=== PATIENT | female | born 1980 | race African-American/Black ===

== ENCOUNTER 2019-12-05 09:16 | Emergency (ER) | payer BC, OTHER ==
[~2019-12-05] VITALS: Ht 165.1 cm; Wt 89.8 kg
[2019-12-05 09:30] VITALS: BP 153/97
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
--- NOTE | 2019-12-05 09:42 | NUR ---
ED Nurse Note: Dr. De Leon on bedside.
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
[2019-12-05] MEDS ORDERED: IBUPROFEN600 MG ORAL (09:56)
[2019-12-05] MEDS ORDERED: ROBAXIN-500MG ORAL (09:56)
--- NOTE | 2019-12-05 10:00 | NUR ---
ED Nurse Note: Pt went on CT accompanied by tech.
--- NOTE | 2019-12-05 10:07 | NUR ---
ED Nurse Note: Pt returned from CT accompanied by tech.
[2019-12-05 10:08] LABS: HEMOGLOBIN 7.7 G/DL (12.0-16.0); MEAN CORPUSCULAR VOLUME 64 FL (80-99); PLATELET COUNT 309 K/UL (150-450); RED CELL DISTRIBUTION WIDTH 16.8 % (11.6-14.8); WHITE BLOOD COUNT 6.3 K/UL (4.8-10.8)
[2019-12-05] MEDS ORDERED: FERROUS SULFAT325 MG ORAL (10:17)
[2019-12-05 10:19] LABS: ANION GAP 10 mmol/L (5-15); BLOOD UREA NITROGEN 11 mg/dL (7-18); CALCIUM 8.8 MG/DL (8.5-10.1); CARBON DIOXIDE 25 MMOL/L (21-32); CHLORIDE 106 MMOL/L (98-107); CREATININE 0.8 MG/DL (0.55-1.30); POTASSIUM 3.3 MMOL/L (3.5-5.1); SODIUM 141 MMOL/L (136-145)
[2019-12-05 10:25] LABS: ALANINE AMINOTRANSFERASE 22 U/L (12-78); ALBUMIN 3.5 G/DL (3.4-5.0); ALBUMIN/GLOBULIN RATIO 0.8 (1.0-2.7); ALKALINE PHOSPHATASE 48 U/L (46-116); ASPARTATE AMINO TRANSFERASE 15 U/L (15-37); BILIRUBIN,TOTAL 0.2 MG/DL (0.2-1.0)
--- NOTE | 2019-12-05 10:33 | Diagnostic Imaging Report ---
Indication: Headache Technique: Contiguous 5 mm thick transaxial imaging of the head obtained in a Siemens Sensation [address] scanner. Soft tissue and bone windows generated. Automatic Exposure Control was utilized. Total Dose length Product (DLP): 1363.[address] Dose Index Volume (CTDIvol): 62.7 mGy Comparison: none Findings: The size and configuration of the cortical sulci, basal cisterns, and ventricles are within normal limits for age. There is no mass effect, midline shift, or edema identified. There is no evidence of acute hemorrhage or abnormal intra-axial or extra-axial fluid collections. The bones and soft tissues are unremarkable. There is some fluid and mucosal thickening within the visualized paranasal sinuses especially the right sphenoid sinus. Impression: No mass effect, edema or acute bleed. Sinusitis The CT scanner at [facility] is accredited by the [employer] and the scans are performed using dose optimization techniques as appropriate to a performed exam including Automatic Exposure control.
--- NOTE | 2019-12-05 10:34 | NUR ---
ED Nurse Note: US on bedside.
[2019-12-05 10:41] LABS: APPEARANCE,URINE CLEAR; BILIRUBIN, URINE NEGATIVE (NEGATIVE); COLOR,URINE PALE YELLOW; GLUCOSE, URINE (UA) NEGATIVE (NEGATIVE); KETONES,URINE 3+ (NEGATIVE); LEUKOCYTE ESTERASE ,URINE NEGATIVE (NEGATIVE); NITRITE,URINE NEGATIVE (NEGATIVE); PH,URINE 5 (4.5-8.0); PROTEIN,URINE NEGATIVE (NEGATIVE); UROBILINOGEN,URINE NORMAL MG/DL (0.0-1.0)
[2019-12-05 11:37] VITALS: BP 121/96
--- NOTE | 2019-12-05 11:37 | NUR ---
ER DISCHARGE NOTE: Pt is cleared to be discharged per ERMD, pt is aox4, on room air, with stable vital signs. pt was given dc and prescription instructions, pt was able to verbalize understanding, pt id band and iv site removed without complications. pt is able to ambulate with steady gait. pt took all belongings.
--- NOTE | 2019-12-05 11:58 | Diagnostic Imaging Report ---
Indication: Back pain Comparison: None Findings: 2 views of the thoracic spine were obtained. Normal alignment is demonstrated. Vertebral body heights and intervertebral disc heights are normal. The posterior elements including the facets are unremarkable. Soft tissues are unremarkable. Impression: No acute injury appreciated.
--- NOTE | 2019-12-05 12:06 | Diagnostic Imaging Report ---
Indication: Abdominal pain Technique: Grayscale and duplex Doppler imaging of the abdomen performed. Comparison: None Findings: The liver is unremarkable. Doppler interrogation of the main portal vein shows patency with hepatopedal, monophasic flow. There is no biliary ductal dilatation identified. Gallbladder is unremarkable. There is a tiny cyst within the spleen measuring 6 mm. CBD is 3 mm in diameter. The demonstrated part of the pancreas, aorta and IVC show no definite abnormalities. Both kidneys appear unremarkable. There is no hydronephrosis. Incidentally, the uterus is enlarged with multiple calcifications. Findings are likely on the basis of one or more fibroids. IMPRESSION: No acute findings Uterine fibroids
== END 2019-12-05 11:37 | disposition home or self-care (01) ==
LOC: EMR 09:40
DX: S09.90XA Unspecified injury of head, initial encounter (principal); D25.9 Leiomyoma of uterus, unspecified; S29.012A Strain of muscle and tendon of back wall of thorax, initial encounter; D64.9 Anemia, unspecified; V43.52XA Car driver injured in collision with other type car in traffic accident, initial encounter; Y92.410 Unspecified street and highway as the place of occurrence of the external cause
CPT/HCPCS: 36415; 70450; 72070; 76700; 80053; 81003; 81025; 85007; 85025; 99284; J8499